=== PATIENT | male | born 1965 | race Asian ===

== ENCOUNTER 2020-09-30 10:23 | Emergency (ER) | payer OTHER ==
[~2020-09-30] VITALS: Ht 172.7 cm; Wt 72.6 kg
[~2020-09-30 10:23] MED LIST: CENTRUM TABLET1 EACH; LORTAB
[2020-09-30] MEDS ORDERED: MECLIZINE HCL25 M1 PO (10:57)
[2020-09-30 11:06] VITALS: BP 153/90
--- NOTE | 2020-09-30 12:45 | EKG ---
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
== END 2020-09-30 11:20 | disposition home or self-care (01) ==
LOC: ER 10:23
DX: H81.10 Benign paroxysmal vertigo, unspecified ear (principal); F17.210 Nicotine dependence, cigarettes, uncomplicated; Z90.49 Acquired absence of other specified parts of digestive tract